=== PATIENT | female | born 1990 | race Caucasian/White ===

== ENCOUNTER 2025-06-16 11:20 | Emergency (ER) | payer MEDICARE, SELFPAY ==
[2025-06-16 11:21] VITALS: BP 118/80; PULSE 78; TEMP 36.8; O2SAT 97; BMI 35.9
--- NOTE | 2025-06-16 11:31 | W.ED.ABDPA2 ---
HPI - Abdominal Pain General: Chief Complaint: Abdominal Pain Stated Complaint: dull sharp pains in the left side abd area Time Seen by Provider: 06/16/25 11:29 History of Present Illness: 35-year-old female with no known past medical history who presents to the emergency room with left upper quadrant abdominal pain. This been going on for a few days now. She has had some nausea but no vomiting. No fevers. No chest pain. No altered mental status. Related Data Home Medications ?Medication ?Instructions ?Recorded ?Confirmed Golo Release 1 cap PO TID 06/16/25 06/16/25 cimetidine 200 mg tablet 200 mg PO TID 06/16/25 06/16/25 clonazepam 1 mg tablet 1 mg PO TID 06/16/25 06/16/25 clonidine HCl 0.1 mg tablet 1 mg PO BID PRN Hypertension 06/16/25 06/16/25 ibuprofen 200 mg tablet (Advil) 600 mg PO Q6H PRN Fever Or Pain 06/16/25 06/16/25 levetiracetam 500 mg tablet 500 mg PO BID 06/16/25 06/16/25 olanzapine 20 mg tablet (Zyprexa) 20 mg PO DAILY 06/16/25 06/16/25 sertraline 50 mg tablet 50 mg PO DAILY 06/16/25 06/16/25 Previous Rx's ?Medication ?Instructions ?Recorded omeprazole 40 mg capsule,delayed 40 mg PO DAILY #30 caps 06/16/25 release ondansetron 8 mg disintegrating 8 mg PO Q6H #14 tabs 06/16/25 tablet Allergies Allergy/AdvReac Type Severity Reaction Status Date / Time No Known Allergies Allergy Verified 06/16/25 11:28 Review of Systems Narrative: Constitutional symptoms: Negative except as documented in HPI. Skin symptoms: Negative except as documented in HPI. Eye symptoms: Negative except as documented in HPI. ENMT symptoms: Negative except as documented in HPI. Respiratory symptoms: Negative except as documented in HPI. Cardiovascular symptoms: Negative except as documented in HPI. Gastrointestinal symptoms: Negative except as documented in HPI. Genitourinary symptoms: Negative except as documented in HPI. Musculoskeletal symptoms: Negative except as documented in HPI. Neurologic symptoms: Negative except as documented in HPI. Psychiatric symptoms: Negative except as documented in HPI. Endocrine symptoms: Negative except as documented in HPI. PFSH ED PFSH: Medical History (Updated 06/16/25 @ 14:33 by Anat Low MD) Psychiatric care Physical Exam Narrative: EXAM NARRATIVE: General: Alert, no acute distress. Skin: Warm, dry. Head: Normocephalic, atraumatic. Neck: Supple, trachea midline. Eye: Extraocular movements are intact. Ears, nose, mouth and throat: mucosa moist. Cardiovascular: Regular, Normal peripheral perfusion. Respiratory: Lungs are clear to auscultation, respirations are non-labored, breath sounds are equal, Symmetrical chest wall expansion. Gastrointestinal: Soft, some tenderness in the left upper quadrant, Non distended Musculoskeletal: Normal ROM, no deformity. Neurological: Alert and oriented, No focal neurological deficit observed. Psychiatric: Cooperative, appropriate mood & affect. Course Vital Signs: Vital signs: Vital Signs Temperature 98.3 F 06/16/25 11:21 Pulse Rate 75 06/16/25 14:52 Blood Pressure 110/70 06/16/25 14:52 Pulse Oximetry 98 06/16/25 14:52 Oxygen Delivery Me thod Room Air 06/16/25 12:30 MDM - Abdominal Pain Medical Decision Making Medical decision making: Differential diagnosis for a patient who presents with left upper quadrant abdominal pain including but not limited to and based on the above HPI, review of systems and physical exam: Diverticulitis. Constipation Ureterolithiasis. Urinary tract infection. colitis. small bowel obstruction. Crohn's flare. Orders placed to evaluate differential diagnosis based on the above differential, HPI and physical exam Lab Review: Laboratory results were reviewed and interpreted by myself the emergency room physician. No leukocytosis. No anemia. No renal failure. CT of the abdomen pelvis with contrast: Fatty liver, hiatal hernia, umbilical hernia but no acute processes. This was reviewed and interpreted by myself the emergency room physician. I also reviewed the radiology report. I reviewed the patient's medical record. Reexamination: Patient remained stable. No increased work of breathing. No altered mental status. No focal motor deficits. Assessment and plan: Abdominal pain - Discharged home - Discussed plan with patient. Answered any questions. - Evaluation and treatment of this problem were appropriate in the emergency setting. Lab Data 06/16/25 11:53 06/16/25 11:53 Labs/Radiology: Radiology Impressions Abdomen/Pelvis CT 06/16/25 12:13 IMPRESSION: 1. Hepatomegaly with fatty liver 2. Small esophageal hiatal hernia 3. Normal appendix 4. Fat-containing umbilical hernia 5. No free fluid in the cul-de-sac Laboratory Results WBC 8.89 10^3/uL (3.29-11.43) 06/16/25 11:53 RBC 4.94 10^6/uL (3.85-5.65) 06/16/25 11:53 Hgb 13.50 g/dL (11.27-16.99) 06/16/25 11:53 Hct 40.5 % (36-47) 06/16/25 11:53 MCV 82.0 fl (85-98) L 06/16/25 11:53 MCH 27.3 pg (27-33) 06/16/25 11:53 MCHC 33.3 g/dL (30-55) 06/16/25 11:53 RDW 14.9 % (12.1-15.1) 06/16/25 11:53 Plt Count 301 10^3/cmm (157-399) 06/16/25 11:53 MPV 10.5 fL (7.4-10.4) H 06/16/25 11:53 Neut % (Auto) 73.9 % 06/16/25 11:53 Lymph % (Auto) 19.3 % 06/16/25 11:53 Hart % (Auto) 5.2 % 06/16/25 11:53 Eos % (Auto) 0.9 % 06/16/25 11:53 Baso % (Auto) 0.4 % 06/16/25 11:53 Neut # (Auto) 6.56 10^3/uL (1.8-7.7) 06/16/25 11:53 Lymph # (Auto) 1.7 10^3/uL (0.8-4.8) 06/16/25 11:53 Hart # (Auto) 0.5 10^3/uL (0.2-0.9) 06/16/25 11:53 Eos # (Auto) 0.1 10^3/uL (0.0-0.8) 06/16/25 11:53 Baso # (Auto) 0.0 10^3/uL (0.0-0.1) 06/16/25 11:53 Nucleated RBC % (auto) 0 % 06/16/25 11:53 Nucleated RBCs # 0.0 /100WBC 06/16/25 11:53 Sodium 138 mmol/L (136-145) 06/16/25 11:53 Potassium 3.8 mmol/L (3.5-5.1) 06/16/25 11:53 Chloride 97 mmol/L (98-107) L 06/16/25 11:53 Carbon Dioxide 27 mmol/L (22-29) 06/16/25 11:53 Anion Gap 17.8 (5-19) 06/16/25 11:53 BUN 9 mg/dL (6-20) 06/16/25 11:53 Creatinine 0.7 mg/dL (0.5-0.9) 06/16/25 11:53 GFR Calculation 94.2 mL/min (90-130) 06/16/25 11:53 Glucose 101 mg/dL (65-115) 06/16/25 11:53 Calculated Osmolality 285 mOsm/kg (285-295) 06/16/25 11:53 Lactic Acid 0.9 mmol/L (0.5-2.2) 06/16/25 11:53 Calcium 9.9 mg/dL (8.5-10.5) 06/16/25 11:53 Total Bilirubin 0.4 mg/dL (0.15-1.2) 06/16/25 11:53 AST 22 U/L (0-32) 06/16/25 11:53 ALT 26 U/L (0-33) 06/16/25 11:53 Alkaline Phosphatase 87 U/L (35-105) 06/16/25 11:53 C-Reactive Protein 10.8 mg/L (0.0-4.9) H 06/16/25 11:53 Total Protein 8.2 g/dL (6.6-8.7) 06/16/25 11:53 Albumin 5.0 g/dL (3.5-5.2) 06/16/25 11:53 Globulin 3.2 g/dL (1.3-4.6) 06/16/25 11:53 Lipase 22 U/L (13-60) 06/16/25 11:53 HCG, Qual Negative (Negative) 06/16/25 11:38 Urine Color Yellow (Yellow) 06/16/25 11:38 Urine Appearance Clear (CLEAR) 06/16/25 11:38 Urine pH 6.5 (5-7) 06/16/25 11:38 Ur Specific [place] 1.010 (1.005-1.030) 06/16/25 11:38 Urine Protein Negative (Negative) 06/16/25 11:38 Urine Glucose (UA) Negative (Normal) 06/16/25 11:38 Urine Ketones Negative (Negative) 06/16/25 11:38 Urine Blood Negative (Negative) 06/16/25 11:38 Urine Nitrate Negative (Negative) 06/16/25 11:38 Urine Bilirubin Negative (Negative) 06/16/25 11:38 Urine Urobilinogen 0.2 mg/dL (Negative) 06/16/25 11:38 Ur Leukocyte Esterase Negative (Negative) 06/16/25 11:38 Urine RBC None /hpf (0-2) 06/16/25 11:38 Urine WBC 0-4 /hpf (0-5) H 06/16/25 11:38 Ur Squamous Epith Cells 0-4 /hpf (0-5) H 06/16/25 11:38 Amorphous Sediment Not Reportable 06/16/25 11:38 Urine Bacteria 1+ /hpf (NONE) H 06/16/25 11:38 All radiology interpretation(s) finalized by discharge Discharge Plan Discharge Patient Disposition: Home Clinical Impression: Abdominal pain Condition: Stable Prescriptions: New omeprazole 40 mg capsule,delayed release(DR/EC) 40 mg PO DAILY Qty: 30 0RF ondansetron 8 mg tablet,disintegrating 8 mg PO Q6H Qty: 14 0RF Rx Instructions: Take 1/2-1 tab every 6 hours as needed for nausea and vomiting No Action clonidine HCl 0.1 mg tablet 1 mg PO BID PRN (Reason: Hypertension) levetiracetam 500 mg tablet 500 mg PO BID clonazepam 1 mg tablet 1 mg PO TID sertraline 50 mg tablet 50 mg PO DAILY olanzapine [Zyprexa] 20 mg tablet 20 mg PO DAILY cimetidine [Tagamet] 200 mg Tablet 200 mg PO TID Rx Instructions: administer with meals ibuprofen [Advil] 200 mg Tablet 600 mg PO Q6H PRN (Reason: Fever Or Pain) Golo Release 1 cap PO TID Discharge Orders: Discharge ED (Routine); Ordered 06/16/25 Ordered By: Anat Low Referrals: Domitila Mcfarlane MD [Primary Care Provider, Family Practice] Patient Instructions: Abdominal Pain (ED), Opioid Safety, Pain Management, Patient Portal & [place]ina Instructions Activity Restrictions/Additional Instructions: Thank you for choosing [facility] for your healthcare needs today. You have been screened and evaluated and felt safe for discharge. Health conditions do change or evolve sometimes and as such it is important that you follow up with your Primary Doctor to be re checked, 3-5 days is a general good time frame for follow up. You are always welcome to return to the ED for re assessment if your symptoms are worsening or you have new concerns Print Language: Somali Coding Level of Care Code ED [employer] for Elissa Hmam
[2025-06-16 11:54] LABS: HCG Qualitative Urine. Negative (Negative)
[2025-06-16 12:00] LABS: Hematocrit 40.5 % (36-47); Hemoglobin 13.50 g/dL (11.27-16.99); Mean Corpuscular HGB Conc 33.3 g/dL (30-55); Mean Corpuscular Hemoglobin 27.3 pg (27-33); Mean Corpuscular Volume 82.0 fl (85-98); Nucleated Red Blood Cells % 0 %; Platelet Count 301 10^3/cmm (157-399); Red Blood Count 4.94 10^6/uL (3.85-5.65); White Blood Count 8.89 10^3/uL (3.29-11.43)
--- NOTE | 2025-06-16 12:13 | CT_ITS ---
WS: [id number] CT ABDOMEN PELVIS TECHNIQUE: Contrast-enhanced CT of the abdomen and pelvis with coronal and sagittal reformatted images. CLINICAL INFORMATION: Abdominal pain COMPARISON: None. DLP: 949.[address] scans at [facility] use at least one of these dose optimization techniques: automated exposure control; mA and/or kV adjustment per patient size (includes targeted exams where dose is matched to clinical indication); or iterative reconstruction. FINDINGS: Hepatomegaly. Fatty liver. Small esophageal hiatal hernia. Normal portal vein and splenic vein. Normal gallbladder. Adrenal glands are normal. No hydronephrosis in either kidney. Tiny RIGHT renal cortical cyst. Lung bases are well aerated. Normal caliber abdominal aorta. Normal appendix in the RIGHT lower quadrant. Fat-containing umbilical hernia. Multi follicular ovaries bilaterally. No free fluid in the cul-de-sac. No evidence of small or large bowel obstruction. Mild RIGHT colon and transverse colon constipation. CT/CT abdomen pelvis w con* [id number] IMPRESSION: 1. Hepatomegaly with fatty liver 2. Small esophageal hiatal hernia 3. Normal appendix 4. Fat-containing umbilical hernia 5. No free fluid in the cul-de-sac
[2025-06-16 12:15] LABS: Lactic Sepsis W/Reflex 0.9 mmol/L (0.5-2.2)
[2025-06-16 12:16] LABS: Alanine Aminotransferase 26 U/L (0-33); Albumin Level 5.0 g/dL (3.5-5.2); Alkaline Phosphatase 87 U/L (35-105); Anion Gap 17.8 (5-19); Aspartate Amino Transferase 22 U/L (0-32); Blood Urea Nitrogen 9 mg/dL (6-20); Calcium 9.9 mg/dL (8.5-10.5); Carbon Dioxide 27 mmol/L (22-29); Chloride 97 mmol/L (98-107); Creatinine Clr Calc Pharmacy 109.7036; Globulin 3.2 g/dL (1.3-4.6); Glucose 101 mg/dL (65-115); Lipase 22 U/L (13-60); Osmolality Calculated 285 mOsm/kg (285-295); Potassium 3.8 mmol/L (3.5-5.1); Sodium 138 mmol/L (136-145); Total Protein 8.2 g/dL (6.6-8.7)
[2025-06-16 12:30] VITALS: BP 134/84; PULSE 86; O2SAT 94
[2025-06-16] MEDS: iohexol 350 mg/mL 500 mL Btl (per mL) IV (12:33)
[2025-06-16 14:46] LABS: Glucose Urine UA Negative (Normal); Nitrate Urine Negative (Negative); Specific Gravity, Urine 1.010 (1.005-1.030)
[2025-06-16 14:52] VITALS: BP 110/70; PULSE 75; O2SAT 98
[2025-06-16 14:59] LABS: UA Manual Slide Review YES
== END 2025-06-16 14:54 | disposition home or self-care (01) ==
PROVIDERS: Emergency Provider Emergency Medicine; PCP Family Medicine
DX: R10.12 Left upper quadrant pain (principal)
CPT/HCPCS: 36415; 74177; 80053; 81001; 81025; 83605; 83690; 85025; 86140; 99285